=== PATIENT | female | born 1955 | race Caucasian/White ===

== ENCOUNTER 2023-03-08 12:44 | Outpatient (CLI) | payer MEDICARE | END 2023-03-08 12:45 | disposition home or self-care (01) | LOC: CSHMAMMO 12:44 | PROVIDERS: ATTEND Family Medicine | DX: Z12.31 Encounter for screening mammogram for malignant neoplasm of breast (principal); Z13.820 Encounter for screening for osteoporosis; M85.852 Other specified disorders of bone density and structure, left thigh; Z91.89 Other specified personal risk factors, not elsewhere classified | CPT/HCPCS: 77063; 77067; 77080 ==

== ENCOUNTER 2023-03-19 09:41 | Outpatient (CLI) | payer MEDICARE ==
[2023-03-19] MEDS ORDERED: Iopamidol 300 61% 100 ML VIAL FS ONE (13:47)
== END 2023-03-19 09:42 | disposition home or self-care (01) ==
LOC: CSHCT 09:41
PROVIDERS: ATTEND Family Medicine
DX: R10.11 Right upper quadrant pain (principal); K76.89 Other specified diseases of liver
CPT/HCPCS: 74170

== ENCOUNTER 2023-05-17 12:46 | Outpatient (CLI) | payer MEDICARE | END 2023-05-17 12:47 | disposition home or self-care (01) | LOC: CSHULT 12:46 | PROVIDERS: ATTEND Physician Assistant Medical | DX: Z86.010 Personal history of colon polyps (principal); R10.11 Right upper quadrant pain | CPT/HCPCS: 76705 ==